=== PATIENT | female | born 1965 | race Caucasian/White ===

== ENCOUNTER 2019-10-19 17:58 | Emergency (ER) | payer OTHER ==
[2019-10-19 18:09] VITALS: BP 153/80; PULSE 82; TEMP 98.5; BMI 46.8
[2019-10-19] MEDS ORDERED: RABIES VACCINE (PCEC)/PF 2.5 UNIT/VIAL IM ONE (18:19)
--- NOTE | 2019-10-19 18:19 | PDOC ---
History of Present Illness - General Chief Complaint: Bite Stated Complaint: BAT EXPOSURE Time Seen by Provider: 10/19/19 18:09 History Source: Patient Exam Limitations: No Limitations - History of Present Illness Initial Comments: 10/19/19 18:39 54YOF with borderline DM who was advised by the [facility] to come into the ED for rabies post-exposure ppx after finding a bat in her bedroom upon awakening 2 weeks ago. States there have been bats living around and in her home which she noticed within the past couple of months. She can hear them at night and she called the [facility] today to see what they could do to remove them, but they notified her they can only recommend that she go to the ED. The patient states she is not 100% sure she did not get scratched or bitten. She has had no new symptoms recently. Past History - Medical History Allergies/Adverse Reactions: Allergies Allergy/AdvReac Type Severity Reaction Status Date / Time No Known Allergies Allergy Verified 10/19/19 17:59 Home Medications: Ambulatory Orders NK [No Known Home Medication] 10/19/19 CVA: No COPD: No CHF: No - Surgical History Cholecystectomy: Yes - Reproductive History Is Patient Now?: No - Psycho-Social/Smoking History Smoking History: Never smoked - Substance Abuse Hx (Audit-C & DAST Scrn) How often the patient has a drink containing alcohol: Monthly or less Number of drinks the patient has on a typical day: 1 or 2 How often the patient has six or more drinks on one occasion: Never Score: In Men: 4 or > Positive; In Women: 3 or > Positive: 1 Screen Result (Pos requires Nsg. Audit-10AR): Negative In the last yr the pt used illegal drug/Rx for NonMed reason: No Score: Yes response is considered Positive: 0 Screen Result (Positive result requires Nsg. DAST-10): Negative Review of Systems - Review of Systems Able to Perform ROS?: Yes Comments:: 10/19/19 18:42 GEN: no fever, chills, malaise, or generalized weakness HEENT: no ear pain, congestion, sore throat, vision change, or eye pain CV: no chest pain, palpitations, lightheadedness, syncope, or edema RESP: no SOB, wheezing, or cough GI: no abdominal pain, nausea, vomiting, diarrhea, constipation, or rectal bleed : no dysuria, hematuria, or discharge MSK: no muscle weakness or pain, no joint swelling or pain NEURO: no headache, vertigo, numbness, tingling, or focal weakness PSYCH: no SI, HI, or behavior change SKIN: no jaundice, rash, lesions, or unexplained bruises ROS otherwise negative except as noted in HPI *Physical Exam - Vital Signs Last Vital Signs Temp Pulse Resp BP Pulse Ox 98.5 F 82 17 153/80 100 10/19/19 17:59 10/19/19 17:59 10/19/19 17:59 10/19/19 17:59 10/19/19 17:59 - Physical Exam 10/19/19 18:42 GENERAL: well-appearing, very very pleasant, A/Ox4, no distress, answers questions appropriately, short stature and obese HEENT: PERRLA, EOMI, moist mucous membranes NECK/BACK: no midline ttp, no spinal step-off or deformity, no hematoma, full ROM, neck supple CARDIOVASCULAR: regular rate/rhythm, no MGR, strong peripheral pulses, capillary refill <2 seconds, extremities wwp, no edema LUNGS/RESPIRATORY: no respiratory distress, CTAB GI/ABDOMEN: symmetric [id number], normoactive BS, soft, no ttp, no midline pulsatile masses : no CVA tenderness MSK/EXTREMITIES: no muscle atrophy, no acute deformity SKIN: warm and dry, no pallor, no jaundice, no rash, no pathologic-appearing bruising, no skin breakdown, no cuts, no lesions NEUROLOGICAL: GCS 15, CN II-XII grossly intact, 5/5 strength proximally and distally, no facial droop Medical Decision Making - Medical Decision Making 10/19/19 18:10 Pt presents with bat exposure. Tetanus status: about 10 years ago. Rabies status: never before vaccinated. Sent to ED by [facility]. Initial Vital Signs Temp Pulse Resp BP Pulse Ox 98.5 F 82 17 153/80 100 10/19/19 17:59 10/19/19 17:59 10/19/19 17:59 10/19/19 17:59 10/19/19 17:59 Possible transmission via mucous membrane exposure, and patient is not 100% sure she was not scratched or bitten. Requests vaccination series and tetanus update. This is indicated based on her story. Provider Orders Category Date Time Status Diphth,Pertuss(Acell),Tet Ped [Boostrix -] Medication 10/19/19 18:21 Once 0.5 ml IM .ONCE ONE Rabies Immune Globulin/Pf [Hyperrab 300 Unit/ml Vial] Medication 10/19/19 18:20 Once 2,180 unit IM ONCE ONE Rabies Vaccine (Pcec)/Pf [Rabavert Rabies Vaccine] Medication 10/19/19 18:19 Once 2.5 unit IM .ONCE ONE Medications Discontinued Medications Generic Name Dose Route Start Last Admin Trade Name Freq PRN Reason Stop Dose Admin Diphtheria/Tetanus/Acell Pertussis 0.5 ml 10/19/19 18:21 Boostrix - IM 10/19/19 18:22 .ONCE ONE Rabies Immune Globulin 2,180 unit 10/19/19 18:20 Hyperrab 300 Unit/Ml Vial 20 unit/kg (2180 unit) 10/19/19 18:21 IM ONCE ONE Protocol Rabies Vaccine 2.5 unit 10/19/19 18:19 Rabavert Rabies Vaccine IM 10/19/19 18:20 .ONCE ONE Rabies IG and vaccine ordered for todays visit and given (today is day 0). The Pt will need to have f/u rabies vaccine on days 3, 7, and 14. The Pt is appropriate for discharge with close outpatient follow up. They are comfortable with this plan and will follow up with PCP in 1-3 days. They will go to PCP or return to the ER for remaining rabies vaccine course. They are counseled on which dates to have their vaccines. Specific return precautions are discussed and they will come back to the ER if necessary. Discharge - Discharge Information Problems reviewed: Yes Clinical Impression/Diagnosis: Rabies, need for prophylactic vaccination against Condition: Stable Disposition: HOME - Admission No - Follow up/Referral Referrals: Komal Aquino MD [Primary Care Provider] - - Patient Discharge Instructions Patient Printed Discharge Instructions: DI for Rabies Vaccine Additional Instructions: You were seen in the ER for possible rabies exposure. We gave you the recommended rabies immune globulin injection, as well as your first of four rabies vaccines. You will need to return to the ER or follow up with your primary care provider on the following dates for the remaining doses in your rabies vaccine course, which is recommended after rabies exposure: 10/22/19, 10/26/19, 9/22/20. Please follow up with your primary care provider in 1-3 days. Please come back to the ER at any time (24 hours a day) for any new or worsening symptoms. If you are having severe or life threatening symptoms, or symptoms that make it unsafe to drive or have someone drive you, please call 911 - Post Discharge Activity
[2019-10-19] MEDS ORDERED: RABIES IMMUNE GLOBULIN 300 UNITS/1 ML VIAL IM ONE (18:20)
[2019-10-19] MEDS ORDERED: DIPHTH,PERTUSS(ACELL),TET 0.5 ML DISP.SYRIN IM ONE ×2 (18:21→18:42)
[2019-10-19] MEDS ORDERED: RABIES IMMUNE GLOBULIN 300 UNITS/1 ML VIAL ONE (18:24)
== END 2019-10-19 18:57 | disposition home or self-care (01) ==
LOC: FER 17:58
DX: Z29.14 Encounter for prophylactic rabies immune globulin (principal)
CPT/HCPCS: 90375; 90675; 90715; 99281-25

== ENCOUNTER 2019-10-22 18:01 | Emergency (ER) | payer OTHER ==
[2019-10-22] MEDS ORDERED: RABIES VACCINE (PCEC)/PF 2.5 UNIT/VIAL IM ONE ×2 (18:06→18:10)
--- NOTE | 2019-10-22 18:06 | PDOC ---
History of Present Illness - General Chief Complaint: Revisit,Rabies Injection Stated Complaint: RABIES VACCINE Time Seen by Provider: 10/22/19 18:06 - History of Present Illness Initial Comments: 10/22/19 18:10 Presents for next in a series of rabies vaccinations. No reaction to a prior injection. Alert and oriented no acute distress Afebrile, vital signs normal No reaction at the site of prior injection Assessment: Rabies immunization, no adverse reactions thus far Plan: Administer next dose. Return for follow-up. Past History - Medical History Allergies/Adverse Reactions: Allergies Allergy/AdvReac Type Severity Reaction Status Date / Time No Known Allergies Allergy Verified 10/22/19 18:02 Home Medications: Ambulatory Orders NK [No Known Home Medication] 10/19/19 CVA: No COPD: No CHF: No - Surgical History Cholecystectomy: Yes - Psycho-Social/Smoking History Smoking History: Never smoked Discharge - Discharge Information Problems reviewed: Yes Clinical Impression/Diagnosis: Rabies, need for prophylactic vaccination against Condition: Stable Disposition: HOME - Admission No - Follow up/Referral - Patient Discharge Instructions Patient Printed Discharge Instructions: DI for Rabies Vaccine - Post Discharge Activity Work/Back to School Note: Rabies Vaccination F/U Agustina.
[2019-10-22 18:09] VITALS: BP 145/78; PULSE 96; TEMP 98.8; BMI 46.9
== END 2019-10-22 18:40 | disposition home or self-care (01) ==
LOC: FER 18:01
PROC: 3E0234Z Introduction of Serum, Toxoid and Vaccine into Muscle, Percutaneous Approach (ICD-10-PCS; principal; 2019-10-22)
DX: Z20.3 Contact with and (suspected) exposure to rabies (principal)
CPT/HCPCS: 90675; 99284-25

== ENCOUNTER 2019-10-26 17:39 | Emergency (ER) | payer OTHER ==
--- NOTE | 2019-10-26 17:43 | PDOC ---
History of Present Illness - General Chief Complaint: Revisit,Rabies Injection Stated Complaint: Rabies Vaccine Time Seen by Provider: 10/26/19 17:41 History Source: Patient Exam Limitations: No Limitations - History of Present Illness Initial Comments: 10/26/19 17:43 54y F hx of borderline DM presents for 3rd rabies vaccine for possible bat exposure. Pt has no symptoms denies any weakness/numbness/tingling/thirst, fever/chills. ros: se eabove exam: well appearing in no distress no rashes at prior site of vascination plan: will give 3rd vaccination and have pt return in 7 days for last dose Past History - Medical History Allergies/Adverse Reactions: Allergies Allergy/AdvReac Type Severity Reaction Status Date / Time No Known Allergies Allergy Verified 10/22/19 18:02 Home Medications: Ambulatory Orders NK [No Known Home Medication] 10/19/19 CVA: No COPD: No CHF: No - Surgical History Cholecystectomy: Yes - Psycho-Social/Smoking History Smoking History: Never smoked Have you smoked in the past 12 months: No Discharge - Discharge Information Problems reviewed: Yes Clinical Impression/Diagnosis: Rabies, need for prophylactic vaccination against Condition: Stable Disposition: HOME - Admission No - Follow up/Referral - Patient Discharge Instructions Patient Printed Discharge Instructions: DI for Rabies Vaccine Additional Instructions: Return in 7 days for your final Rabies vaccine. - Post Discharge Activity Work/Back to School Note: Rabies Vaccination F/U Agustina.
[2019-10-26] MEDS ORDERED: RABIES VACCINE (PCEC)/PF 2.5 UNIT/VIAL IM ONE ×2 (17:45→18:15)
[2019-10-26 17:51] VITALS: BP 141/66; PULSE 84; TEMP 98.4; BMI 44.4
== END 2019-10-26 18:24 | disposition home or self-care (01) ==
LOC: FER 17:39
DX: Z29.14 Encounter for prophylactic rabies immune globulin (principal)
CPT/HCPCS: 90675; 99281-25

== ENCOUNTER 2019-11-02 17:44 | Emergency (ER) | payer OTHER ==
--- NOTE | 2019-11-02 17:46 | PDOC ---
History of Present Illness - General Chief Complaint: Revisit,Rabies Injection Stated Complaint: RABIES VACCINE Time Seen by Provider: 11/02/19 17:46 History Source: Patient Exam Limitations: No Limitations - History of Present Illness Initial Comments: 54 yo F presents for 4th rabies vaccine, 14 days out from exposure. Offers no complaints. Past History - Medical History Allergies/Adverse Reactions: Allergies Allergy/AdvReac Type Severity Reaction Status Date / Time No Known Allergies Allergy Verified 10/22/19 18:02 Home Medications: Ambulatory Orders NK [No Known Home Medication] 10/19/19 CVA: No COPD: No CHF: No - Surgical History Cholecystectomy: Yes - Psycho-Social/Smoking History Smoking History: Never smoked Have you smoked in the past 12 months: No Review of Systems - Review of Systems Able to Perform ROS?: Yes Comments:: GENERAL/CONSTITUTIONAL: No fever or chills. No weakness. HEAD, EYES, EARS, NOSE AND THROAT: No change in vision. No ear pain or discharge. No sore throat. MUSCULOSKELETAL: No joint or muscle swelling or pain. No neck or back pain. SKIN: No rash. NEUROLOGIC: No headache, vertigo, loss of consciousness, or change in strength/sensation. ENDOCRINE: No increased thirst. No abnormal weight change. HEMATOLOGIC/LYMPHATIC: No anemia, easy bleeding, or history of blood clots. ALLERGIC/IMMUNOLOGIC: No hives or skin allergy. *Physical Exam - Physical Exam GENERAL: Awake, alert, and fully oriented, in no acute distress HEAD: No signs of trauma LUNGS: Breath sounds equal, clear to auscultation bilaterally. No wheezes, and no crackles HEART: Regular rate and rhythm, normal S1 and S2, no murmurs, rubs or gallops SKIN: Warm, dry, normal turgor, no rashes or lesions noted. Discharge - Discharge Information Problems reviewed: Yes Clinical Impression/Diagnosis: Encounter for repeat administration of rabies vaccination Condition: Stable Disposition: HOME - Follow up/Referral - Patient Discharge Instructions Patient Printed Discharge Instructions: DI for Rabies Vaccine - Post Discharge Activity
[2019-11-02] MEDS ORDERED: RABIES VACCINE (PCEC)/PF 2.5 UNIT/VIAL IM ONE ×2 (17:47→17:52)
[2019-11-02 18:23] VITALS: BP 154/70; PULSE 79; TEMP 99.3; BMI 44.9
--- OUTSIDE RECORDS SUMMARY | 2019-11-02 18:33 | XMS ---
:1965 Author Organization [facility] Support Name Relationship Address Phone TONG MILLER Unavailable [address] [place] [address] [employer] HOME Unavailable [address] [facility] [place] [address] VERA WEBSTER MOTHER [address] [place] [address] VERA WEBSTER Mother [address] [place] [address] Re-disclosure Warning The records that you are about to access may contain information from federally- assisted alcohol or drug abuse programs. If such information is present, then the following federally mandated warning applies: This information has been disclosed to you from records protected by federal confidentiality rules (42 CFR part 2). The federal rules prohibit you from making any further disclosure of this information unless further disclosure is expressly permitted by the written consent of the person to whom it pertains or as otherwise permitted by 42 CFR part 2. A general authorization for the release of medical or other information is NOT sufficient for this purpose. The Federal rules restrict any use of the information to criminally investigate or prosecute any alcohol or drug abuse patient.The records that you are about to access may contain highly sensitive health information, the redisclosure of which is protected by Article 27-F of the [facility] Public Health law. If you continue you may haveaccess to information: Regarding HIV / AIDS; Provided by facilities licensed or operated by the [facility] Office of Mental Health; or Provided by the [facility] Office for People With Developmental Disabilities. If such information is present, then the following [facility] mandated warning applies: This information has been disclosed to you from confidential records which are protected by state law. State law prohibits you from making any further disclosure of this information without the specific written consent of the person to whom it pertains, or as otherwise permitted by law. Any unauthorized further disclosure in violation of state law may result in a fine or mcc sentence or both. A general authorization for the release of medical or other information is NOT sufficient authorization for further disclosure. Insurance Providers Payer name Policy type Policy ID Covered Covered libertarian's Policy P alfredo / Coverage libertarian ID relationship to Patrick Inf ormation type patrick [place] [id number] HEALTH CARE HMO/POS/EPO Results ID Date Data Source [id number] 09/29/2019 03:54:00 PM EDT [facility] Name Value Range Interpretation Description Data Sup porting Code Source(s) Document(s ) SARS [facility] coronavirus 2 RNA This lab was ordered by [facility] and reported by [facility]. ID Date Data Source [id number] 08/23/2019 09:05:00 AM EDT [facility] Name Value Range Interpretation Description Data Sup porting Code Source(s) Document(s ) SARS [facility] coronavirus 2 RNA [Presence] in Respiratory specimen by JOE with probe detection This lab was ordered by [facility] and reported by [facility]. Procedure
== END 2019-11-02 18:03 | disposition home or self-care (01) ==
LOC: FER 17:44
DX: Z29.14 Encounter for prophylactic rabies immune globulin (principal)
CPT/HCPCS: 90675; 99281-25

== ENCOUNTER 2019-11-06 13:19 | Emergency (ER) | payer OTHER ==
--- OUTSIDE RECORDS SUMMARY | 2019-11-06 13:25 | XMS ---
:1965 Author Organization [facility] Support Name Relationship Address Phone TONG MILLER Unavailable [address] [place] [address] [employer] HOME Unavailable [address] [facility] [place] [address] VERA WEBSTER MOTHER [address] [place] [address] VERA WEBSTER Mother [address] [place] [address] Re-disclosure Warning The records that you are [...] is protected by Article 27-F of the [facility] Public Health law. If you continue you may haveaccess to information: Regarding HIV / AIDS; Provided by facilities licensed or operated by the [facility] Office of Mental Health; or Provided by the [facility] Office for People With Developmental Disabilities. If such information is present, then the following [facility] mandated warning applies: This information has [...] law may result in a fine or [place] health care facility sentence or both. A general authorization for the release of medical or other information is NOT sufficient authorization for further disclosure. Insurance Providers Payer name Policy type Policy ID Covered Covered republican's Policy P alfredo / Coverage republican ID relationship to Patrick Inf ormation type patrick [place] [id number] HEALTH CARE HMO/POS/EPO [place] [id number] [place] [id number] HEALTH CARE HMO/POS/EPO Results ID Date Data Source [id number] 09/29/2019 03:54:00 PM EDT [facility] Name Value Range Interpretation Description Data Sup porting Code Source(s) Document(s ) SARS [facility] coronavirus 2 RNA This lab was ordered by [facility] and reported by [facility]. ID Date Data Source [id number] 08/23/2019 09:05:00 AM EDT [facility] Name Value Range Interpretation Description Data Sup porting Code Source(s) Document(s ) SARS [facility] coronavirus 2 RNA [Presence] in Respiratory specimen by JOE with probe detection This lab was ordered by [facility] and reported by [facility]. Procedure
[2019-11-06 13:31] VITALS: BP 155/85; PULSE 89; TEMP 99.6; BMI 45.8
[2019-11-06] MEDS ORDERED: IBUPROFEN 600 MG TABLET (FP) PO ONE ×2 (14:00→14:12)
--- NOTE | 2019-11-06 14:09 | PDOC ---
History of Present Illness - General Chief Complaint: Pain Stated Complaint: LEFT HAND FINGER PAIN, DISCOMFORT Time Seen by Provider: 11/06/19 13:59 History Source: Patient Exam Limitations: No Limitations - History of Present Illness Initial Comments: 11/06/19 14:04 54-year-old female history of borderline diabetes recently treated with a rabies vaccine for exposure to a bat completed on 922 which is 4 days ago here today complaining of a bump that she noticed in her left wrist as well as a clicking in her left thumb and now swelling and fullness sensation to the distal tip of her left index finger. Denies any trauma no known bites to that arm no redness no fevers chills no new shortness of breath or chest pain. Patient has chronic hoarseness for which she had been treated for a recent vocal cord abnormality Patient does have a history of tendinitis in that left arm and a family history of rheumatoid arthritis Past History - Medical History Allergies/Adverse Reactions: Allergies Allergy/AdvReac Type Severity Reaction Status Date / Time No Known Allergies Allergy Verified 11/06/19 13:20 Home Medications: Ambulatory Orders NK [No Known Home Medication] 10/19/19 CVA: No COPD: No CHF: No Other medical history: TENDINITIS LEFT WRIST - Surgical History Cholecystectomy: Yes - Reproductive History Is Patient Now?: No - Psycho-Social/Smoking History Smoking History: Never smoked Have you smoked in the past 12 months: No Information on smoking cessation initiated: No - Substance Abuse Hx (Audit-C & DAST Scrn) How often the patient has a drink containing alcohol: Never Score: In Men: 4 or > Positive; In Women: 3 or > Positive: 0 Screen Result (Pos requires Nsg. Audit-10AR): Negative In the last yr the pt used illegal drug/Rx for NonMed reason: No Score: Yes response is considered Positive: 0 Screen Result (Positive result requires Nsg. DAST-10): Negative Review of Systems - Review of Systems Constitutional: No: Chills HEENTM: No: Eye Pain Respiratory: No: Cough, Shortness of Breath Cardiac (ROS): No: Chest Pain, Edema ABD/GI: No: Nausea, Vomiting : No: Burning, Dysuria, Discharge Musculoskeletal: Yes: Joint Pain Integumentary: No: Bruising, Change in Color All Other Systems: Reviewed and Negative *Physical Exam - Vital Signs Last Vital Signs Temp Pulse Resp BP Pulse Ox 99.6 F 89 18 155/85 98 11/06/19 13:19 11/06/19 13:19 11/06/19 13:19 11/06/19 13:19 11/06/19 13:19 - Physical Exam 11/06/19 14:05 Awake alert no acute distress head is atraumatic lungs are clear bilaterally heart is regular with any murmurs rubs or gallops abdomen soft nontender examination of the extremities specifically the left upper extremity shows a palpable cystic lesion right at the volar side of the wrist flexion crease just radial to the region of the median nerve patient on flexion extension of the left thumb does have a trigger finger or clicking noted examination of the left index finger demonstrates mild fullness decreased ability to flex at the DIP joint there is no appreciated swelling or erythema she has 2+ radial median pulses no appreciated arm swelling or redness when compared to the right arm Medical Decision Making - Medical Decision Making 11/06/19 14:07 54-year-old female history of borderline diabetes recent recently completed the rabies vaccine here today with a likely ganglion cyst in the left wrist possibility is compression on the median nerve or secondary carpal tunnel syndrome patient has a trigger finger in the left thumb which is also possibly related to a small cyst will refer her to Dr. Raman the hand surgeon who she has seen in the past no signs of current cellulitis overall very well perfused Discharge - Discharge Information Problems reviewed: Yes Clinical Impression/Diagnosis: Cyst, Carpal tunnel syndrome, Trigger finger Condition: Improved Disposition: HOME - Admission No - Follow up/Referral Referrals: Komal Aquino MD [Primary Care Provider] - Jabari Monique MD [Staff Physician] - - Patient Discharge Instructions Patient Printed Discharge Instructions: Trigger Finger, Carpal Tunnel Syndrome, Ganglion Cyst Additional Instructions: You can follow-up with Dr. Monique the hand surgeon please call to schedule appointment to be seen within 1 to 2 weeks. For your pain you can take Motrin 600 mg. You likely have a cyst in your wrist and what we call trigger finger in your thumb cyst may be causing a carpal tunnel like syndrome you can take ibuprofen for your pain any severe weakness or other concerns return please call to schedule appointment see the referral information for Dr. Monique phone number - Post Discharge Activity
== END 2019-11-06 14:15 | disposition home or self-care (01) ==
LOC: FER 13:19
DX: G56.02 Carpal tunnel syndrome, left upper limb (principal); M65.312 Trigger thumb, left thumb
CPT/HCPCS: 99283-25

== ENCOUNTER 2022-06-07 13:50 | Emergency (ER) | payer OTHER ==
[2022-06-07 14:21] VITALS: TEMP 98; BMI 43.4
[2022-06-07] MEDS ORDERED: MECLIZINE HCL 25 MG TABLET (FP) PO ONE (14:28)
[2022-06-07] MEDS ORDERED: MECLIZINE HCL 25 MG TABLET (FP) ONE (14:29)
[2022-06-07 15:00] LABS: EPITHELIAL CELLS RARE /hpf
[2022-06-07 15:40] VITALS: BP 159/73; PULSE 65; RESP 16
== END 2022-06-07 15:46 | disposition home or self-care (01) ==
LOC: FER 13:50
DX: R42 Dizziness and giddiness (principal)
CPT/HCPCS: 81003; 81015; 99283-25